=== PATIENT | female | born 1935 | race Caucasian/White ===

== ENCOUNTER → 2016-07-01 | Outpatient (CLI) | payer OTHER ==
[~2016-07-01] MED LIST: REGADENOSON 0.4 MG/5 ML SYRINGE ONE
== END | disposition home or self-care (01) ==
LOC: CFH 06:37
PROVIDERS: ATTEND Internal Medicine Cardiovascular Disease
DX: I08.3 Combined rheumatic disorders of mitral, aortic and tricuspid valves (principal); I45.19 Other right bundle-branch block; I37.1 Nonrheumatic pulmonary valve insufficiency; I10 Essential (primary) hypertension
CPT/HCPCS: 78452; 93017; 93306; A9502; J2785

== ENCOUNTER → 2017-11-05 | Outpatient (CLI) | payer OTHER | END | disposition home or self-care (01) | LOC: CFH 10-27 07:14 | DX: I12.9 Hypertensive chronic kidney disease with stage 1 through stage 4 chronic kidney disease, or unspecified chronic kidney disease (principal); N18.9 Chronic kidney disease, unspecified; N28.1 Cyst of kidney, acquired | CPT/HCPCS: 76770 ==

== ENCOUNTER 2019-08-12 15:49 | Emergency (ER) | payer MEDICARE, OTHER ==
[~2019-08-12] VITALS: Ht 162.6 cm; Wt 65.7 kg
[2019-08-12] MEDS ORDERED: LIDOCAINE 1%-EPI 1:100K, 20ML ONE (16:47)
[2019-08-12] MEDS ORDERED: DIPH,PERTUSS(ACELL),TET VAC/PF 0.5 ML IM-VACC ONE ×2 (16:48→17:00)
[2019-08-12] MEDS ORDERED: LIDOCAINE-MPF 1%, 5ML INFIL ONE (17:00)
[2019-08-12] MEDS ORDERED: LIDOCAINE-MPF 2% ,5ML ONE (17:09)
[2019-08-12 17:26] VITALS: BP 159/64
--- NOTE | 2019-08-12 18:43 | NUR ---
provider at bedside sewing lip. family at bedside. call light with in reach.
[2019-08-12] MEDS ORDERED: NEOSPORIN OINT. PKT 1 PACKET ONE (19:15)
--- NOTE | 2019-08-12 19:24 | NUR ---
Report received from ABE Prakash. This RN to assume care. Patient discharge instructions up. Given to jasen; all questions and concerns addressed. Patient ambulatory with a steady gait. Belongings with patient.
== END 2019-08-12 19:26 | disposition home or self-care (01) ==
LOC: ED 19:25
DX: S01.511A Laceration without foreign body of lip, initial encounter (principal); I10 Essential (primary) hypertension; W01.0XXA Fall on same level from slipping, tripping and stumbling without subsequent striking against object, initial encounter; Y93.89 Activity, other specified; Y92.89 Other specified places as the place of occurrence of the external cause; Y99.8 Other external cause status
CPT/HCPCS: 12011; 12051; 40650; 70450; 72125; 90471; 90715; 96372; 99285

== ENCOUNTER 2019-09-07 08:04 | Emergency (ER) | payer MEDICARE ==
[~2019-09-07] VITALS: Ht 165.1 cm; Wt 65.7 kg
[2019-09-07 08:06] VITALS: BP 157/67
--- NOTE | 2019-09-07 09:18 | NUR ---
Patient given discharge instructions and they have confirmed that they understand the instructions. Patient ambulatory with steady gait with her cane.
== END 2019-09-07 09:19 | disposition home or self-care (01) ==
LOC: ED 09:07
DX: S01.81XD Laceration without foreign body of other part of head, subsequent encounter (principal); X58.XXXD Exposure to other specified factors, subsequent encounter
CPT/HCPCS: 99283